=== PATIENT | male | born 1935 | race Caucasian/White ===

== ENCOUNTER 2017-05-10 17:39 | Emergency (ER) | payer OTHER, MEDICARE ==
[~2017-05-10] VITALS: Ht 177.8 cm; Wt 70.8 kg
[~2017-05-10 17:39] MED LIST: ACETAMINOPHEN325 M1 PO; AVODART0.5 MG PO; BUPROPION XL150 MG PO; CASODEX 50 MG T50 M1 PO; ENOXAPARIN40 MG/0.4 SQ; FISH OIL + D31 EACH PO; MULTIVITAMINS1 EAC7 PO; PROZAC20 MG PO; SUPER B COMPLE1 EAC3 PO
[2017-05-10] MEDS ORDERED: ARICEPT10 M1 PO (18:03)
[2017-05-10] MEDS ORDERED: NAMENDA 10 MG T10 MG PO (18:03)
[2017-05-10] MEDS ORDERED: TRAMADOL 50 MG50 MG PO (19:17)
[2017-05-10 19:25] VITALS: BP 127/61
[2017-05-20] MEDS ORDERED: MYRBETRIQ50 MG PO (11:38)
[2017-05-20] MEDS ORDERED: CALCIUM 500 +1 EAC5 PO (14:41)
[2017-05-20] MEDS ORDERED: MAGOX 400400 MG PO (14:41)
[2017-05-20] MEDS ORDERED: MELATONIN3 MG PO (14:42)
[2017-05-21] MEDS ORDERED: POTASSIUM PO (11:07)
== END 2017-05-10 19:25 | disposition home or self-care (01) ==
LOC: ER 17:39
DX: S83.92XA Sprain of unspecified site of left knee, initial encounter (principal); Z85.46 Personal history of malignant neoplasm of prostate; X58.XXXA Exposure to other specified factors, initial encounter; Y93.89 Activity, other specified; Y92.89 Other specified places as the place of occurrence of the external cause; Y99.8 Other external cause status

== ENCOUNTER → 2017-05-11 | Outpatient (CLI) | payer OTHER, MEDICARE ==
[~2017-05-11] MED LIST changes: +ARICEPT10 M1 PO; +CALCIUM 500 +1 EAC5 PO; +HYDROCODONE-AP1 EAC6 PO; +MAGOX 400400 MG PO; +MELATONIN3 MG PO; +MYRBETRIQ50 MG PO; +NAMENDA 10 MG T10 MG PO; +POTASSIUM PO; +TRAMADOL 50 MG50 MG PO; +[UNRECOGNIZED DRUG - OTHER] PO
== END ==
LOC: MRI 10:04
DX: S83.242A Other tear of medial meniscus, current injury, left knee, initial encounter (principal); S83.282A Other tear of lateral meniscus, current injury, left knee, initial encounter; M22.42 Chondromalacia patellae, left knee; X58.XXXA Exposure to other specified factors, initial encounter; Y93.89 Activity, other specified; Y92.89 Other specified places as the place of occurrence of the external cause; Y99.8 Other external cause status

== ENCOUNTER 2017-05-19 22:13 | Emergency (ER) | payer OTHER, MEDICARE ==
[~2017-05-19] VITALS: Ht 177.8 cm; Wt 70.3 kg
[~2017-05-19 22:13] MED LIST changes: -CALCIUM 500 +1 EAC5 PO; -HYDROCODONE-AP1 EAC6 PO; -MAGOX 400400 MG PO; -MELATONIN3 MG PO; -MYRBETRIQ50 MG PO; -POTASSIUM PO; -[UNRECOGNIZED DRUG - OTHER] PO
[2017-05-19] MEDS ORDERED: [UNRECOGNIZED DRUG - OTHER] PO (22:31)
[2017-05-19 23:07] VITALS: BP 125/56
[2017-05-20] MEDS ORDERED: MYRBETRIQ50 MG PO (11:38)
[2017-05-20] MEDS ORDERED: MAGOX 400400 MG PO (14:41)
[2017-05-20] MEDS ORDERED: CALCIUM 500 +1 EAC5 PO (14:41)
[2017-05-20] MEDS ORDERED: MELATONIN3 MG PO (14:42)
[2017-05-21] MEDS ORDERED: POTASSIUM PO (11:07)
== END 2017-05-19 23:51 | disposition home or self-care (01) ==
LOC: ER 22:13
DX: M79.89 Other specified soft tissue disorders (principal); M79.605 Pain in left leg; Z90.49 Acquired absence of other specified parts of digestive tract

== ENCOUNTER 2017-05-25 05:22 | Day surgery (SDC) | payer OTHER, MEDICARE ==
[~2017-05-25] VITALS: Ht 177.8 cm; Wt 70.3 kg
--- NOTE | ~2017-05-25 | O ---
[facility] [place] [address] OPERATIVE REPORT Name: MIKY NUÑEZ Room #: DEP [facility]..#: [id number] Admission: 05/25/17 Attend Phys: Kennedy Donald MD Discharge: 05/25/17 Date of : 37 Report #: [id number] THIS REPORT FOR: //name// CC: [place] Donald DATE OF SERVICE: 05/25/2017 PREOPERATIVE DIAGNOSES: 1. Left knee displaced bucket handle medial meniscus tear. 2. Horizontal lateral meniscus tear. POSTOPERATIVE DIAGNOSES: 1. Left knee displaced bucket handle medial meniscus tear. 2. Horizontal lateral meniscus tear. 3. 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 PROCEDURE: 1. Left knee arthroscopy with complete medial meniscectomy. 2. Partial lateral meniscectomy. SURGEON: Kennedy Donald MD. NEGATIVE TURNER APPRENTICE: Charlene Raya PA-C. ANESTHESIA: Spinal. TOURNIQUET TIME: 23 minutes. COMPLICATIONS: None. SPECIMENS: None. CONDITION UPON LEAVING THE OPERATING ROOM: Stable. INDICATIONS FOR PROCEDURE: The patient is an 82-year-old gentleman who has had medial-sided left knee pain and instability. On MRI scan, he was shown to have a displaced bucket handle medial meniscus tear as well as a horizontal tear of his lateral meniscus. After discussion with he and his family, they elected for left knee arthroscopy with medial meniscectomy and debridement as needed. DESCRIPTION OF PROCEDURE: Risks, benefits, alternatives and complications were discussed in detail with the patient including but not limited to risk of anesthesia, risk of damage to nerves, arteries, blood vessels, risk for infection, bleeding, risk for continued knee pain and need for reoperation. Informed consent was obtained from the patient. The left knee was appropriately [address] [address] OPERATIVE REPORT Name: MIKY NUÑEZ Cal Room #: DEP [facility] [place]#: [id number] Admission: 05/25/17 Attend Phys: Kennedy Donald MD Discharge: 05/25/17 Date of : 37 Report #: [id number] marked in the preoperative holding area. IV Ancef was given for preoperative antibiotics. He was brought to the operating room and placed ____ on the operating room table. Spinal anesthesia was induced without complication. He was then placed supine on the OR table and a tourniquet was placed on the left thigh. The left lower extremity was prepped and draped in normal sterile fashion. Timeout was performed properly identifying the patient and procedure as well as the instrumentation. All in the operating room were in agreement. The left lower extremity was exsanguinated and tourniquet was inflated. Tourniquet time was 23 minutes. Standard anterolateral portal was established with an 11 blade through the skin. Arthroscope was introduced into the patellofemoral compartment. Diagnostic arthroscopy was undertaken. The patellofemoral compartment was visualized and found to be without pathology. Medial gutter was visualized and found to be without pathology. Medial compartment was visualized and the medial portal was established under arthroscopic visualization. Probe was introduced into the medial compartment and there was noted to be a displaced bucket handle medial meniscus tear involving nearly the entire medial meniscus. This was then trimmed out with an arthroscopic biter and smoothed back with arthroscopic shaver. We essentially performed a complete medial meniscectomy. The notch was visualized and found to have an intact anterior cruciate ligament. Lateral compartment was visualized and found to have inner margin fraying and horizontal tearing of the body of the lateral meniscus. This was smoothed back with arthroscopic biter and shaver. The lateral gutter was visualized and found to be without pathology. The scope was placed back into the patellofemoral compartment and there was noted to be some grade 3 chondromalacia lower on the trochlear groove. After this, all fluid was drained from the knee. Knee was injected with 10 mL of 0.5% Marcaine. Incision was closed with 3-0 nylon. Soft dressing of Adaptic, 4 x 4, Webril and Jose Francisco wrap were applied. The patient tolerated this procedure well and went to recovery room under care of anesthesia postoperatively. <ELECTRONICALLY SIGNED> By: Kennedy Donald MD 05/29/17 [id number] Kennedy Donald MD /nt
[~2017-05-25 05:22] MED LIST changes: +CALCIUM 500 +1 EAC5 PO; +MAGOX 400400 MG PO; +MELATONIN3 MG PO; +MYRBETRIQ50 MG PO; +POTASSIUM PO; +[UNRECOGNIZED DRUG - OTHER] PO
[2017-05-25 07:15] VITALS: BP 134/72
[2017-05-25] MEDS ORDERED: HYDROCODONE-AP1 EAC6 PO (08:17)
[2017-05-25 08:29] VITALS: BP 134/72
== END 2017-05-25 12:00 | disposition home or self-care (01) ==
LOC: OR 05:22 → TBA 05:23 → OR 07:19
DX: S83.212A Bucket-handle tear of medial meniscus, current injury, left knee, initial encounter (principal); S83.282A Other tear of lateral meniscus, current injury, left knee, initial encounter; M94.262 Chondromalacia, left knee; G30.8 Other Alzheimer's disease; F02.80 Dementia in other diseases classified elsewhere, unspecified severity, without behavioral disturbance, psychotic disturbance, mood disturbance, and anxiety; Z85.828 Personal history of other malignant neoplasm of skin; Z90.49 Acquired absence of other specified parts of digestive tract; Z98.42 Cataract extraction status, left eye; Z98.41 Cataract extraction status, right eye; Z85.46 Personal history of malignant neoplasm of prostate; Z79.891 Long term (current) use of opiate analgesic; X58.XXXA Exposure to other specified factors, initial encounter; Y93.89 Activity, other specified; Y92.89 Other specified places as the place of occurrence of the external cause; Y99.8 Other external cause status
CPT/HCPCS: 50010; 50101; 50405; 51038; 54170; 56526; 62110; 62900; 65085; 70005

== ENCOUNTER → 2018-12-01 | Outpatient (CLI) | payer OTHER, MEDICARE ==
[~2018-12-01] MED LIST changes: +HYDROCODONE-AP1 EAC6 PO
== END ==
LOC: ULTRA 08:56
DX: M79.89 Other specified soft tissue disorders (principal); M79.605 Pain in left leg

== ENCOUNTER → 2019-05-05 | Outpatient (CLI) | payer OTHER, MEDICARE ==
[2019-05-05 14:50] LABS: CREATININE 0.9 mg/dL (0.7-1.3)
== END ==
LOC: CAT 13:15
PROVIDERS: Family Medicine
DX: D73.4 Cyst of spleen (principal); K80.20 Calculus of gallbladder without cholecystitis without obstruction; C91.10 Chronic lymphocytic leukemia of B-cell type not having achieved remission